=== PATIENT | male | born 1955 ===

== ENCOUNTER 2025-06-09 09:02 | Emergency (ER) | payer MEDICARE, MEDICAID ==
[2025-06-09 10:43] LABS: BASOPHILS PERCENT AUTO 0.3 % (0.0-1.0); EOSINOPHILS PERCENT AUTO 3.9 % (1.0-3.0); LYMPHOCYTES PERCENT AUTO 19.4 % (20.5-50.1); MONOCYTES PERCENT AUTO 10.5 % (2-8); NEUTROPHILS PERCENT AUTO 65.9 % (42.2-75.2); PLATELET COUNT,PLT 242 10^3/uL (150-450); RED BLOOD CELL COUNT 5.33 10^6/uL (4.6-6.2); WHITE BLOOD CELL COUNT,WBC 8.9 10^3/uL (5.0-10.0)
[2025-06-09 11:05] LABS: A/G RATIO 1.0; ALANINE AMINOTRANSFERASE,ALT 19.0 U/L (16-63); ASPARTATE AMNIOTRANSFERASE,AST 12.0 U/L (15-37); BILIRUBIN TOTAL 0.3 mg/dL (0.2-1.0); BLOOD UREA NITROGEN,BUN 16.0 mg/dL (7-18); CARBON DIOXIDE,CO2 28.0 mmol/L (21-32); CHLORIDE,CL 102.0 mmol/L (98-107); CREATININE 0.96 mg/dL (0.70-1.30); EST CRCL DRUG DOSING (CG) 70.58 mL/min; ESTIMATED GFR 85.0 mL/min (>=60); GLUCOSE RANDOM 88.0 mg/dL (70-99); POTASSIUM,K 4.9 mmol/L (3.5-5.1); PROTEIN TOTAL,TP 6.9 g/dL (6.4-8.2); SODIUM,NA 134.0 mmol/L (136-145)
[2025-06-09 11:19] LABS: APPEARANCE,URINE CLEAR (CLEAR); GLUCOSE,URINE NEGATIVE (NEGATIVE); OCCULT BLOOD,URINE TRACE-INTACT (NEGATIVE)
[2025-06-09 11:34] LABS: EPITHELIAL CELLS,URINE RARE /HPF (NOT SEEN)
[2025-06-09] MEDS ORDERED: Sodium Chloride 0.9% 10 ML Syringe FLUSH PRN (14:16)
[2025-06-09] MEDS: Iopamidol 755 Mg/ML 100 ML Bottle IVPUSH ONE (14:30)
[2025-06-09 14:37] LABS: INR 0.9 (0.9-1.2); PTT,PARTIAL THROMBOPLSTIN TIME 27.4 SEC (22.0-34.0)
[2025-06-09] MEDS: Ketorolac 30 MG/ML SDV IVPUSH ONE (16:05)
== END 2025-06-09 16:00 | disposition home or self-care (01) ==
LOC: DL.ED 09:02
DX: I71.40 Abdominal aortic aneurysm, without rupture, unspecified (principal); I72.3 Aneurysm of iliac artery; J44.9 Chronic obstructive pulmonary disease, unspecified; Z88.8 Allergy status to other drugs, medicaments and biological substances
CPT/HCPCS: 36415; 74174; 74176; 80053; 81001; 85025; 85610; 85730; 93005; 93010; 96374; 99284; 99285; A9270; J1885; Q9967